=== PATIENT | male | born 1980 | race Caucasian/White ===

== ENCOUNTER 2024-01-03 08:48 | Emergency (ER) | payer SELFPAY ==
[2024-01-03 08:57] VITALS: BP 116/80; PULSE 93; RESP 18; TEMP 98; BMI 22.1
[2024-01-03] MEDS: SODIUM CHLORIDE 0.9% 500 ML INFUS.BAG IV ONE (09:50)
[2024-01-03 09:58] LABS: BASO % 1.2 % (0-2.0); EOS % 0.3 % (0-4.5); LYMPH % 9.4 % (8-40); MCH 25.1 pg (25.7-33.7); MCHC 31.7 g/dl (32.0-35.9); MEAN CELL VOLUME 79.2 fl (80-96); MONO % 10.4 % (3.8-10.2); NEUT % 78.7 % (42.8-82.8); PLATELET COUNT 436 10^3/uL (134-434); RBC 5.18 M/mm3 (4.00-5.60); RDW 12.7 % (11.9-15.9); WHITE BLOOD COUNT 13.5 K/mm3 (4.0-10.0)
[2024-01-03 10:02] LABS: INR 1.27 (0.83-1.09); PROTHROMBIN TIME (PATIENT) 14.5 SEC (9.7-13.0)
[2024-01-03 10:05] LABS: ACTIVATED PTT 30.6 SECONDS (25.2-36.5)
[2024-01-03 10:53] LABS: CHLORIDE 101 mmol/L (98-107); POTASSIUM 4.8 mmol/L (3.5-5.1); SODIUM 138 mmol/L (136-145)
[2024-01-03 10:55] LABS: BLOOD UREA NITROGEN 10.1 mg/dL (7-18); CALCIUM 9.2 mg/dL (8.5-10.1); MAGNESIUM 2.3 mg/dL (1.8-2.4); URINE APPEARANCE CLEAR; URINE BILIRUBIN NEGATIVE (NEGATIVE); URINE COLOR YELLOW; URINE GLUCOSE (UA) NEGATIVE (NEGATIVE); URINE KETONE 15 mg/dl (NEGATIVE); URINE PROTEIN 30 (NEGATIVE)
[2024-01-03 10:56] LABS: ANION GAP 8 mmol/L (4-13); CO2 29 mmol/L (21-32); GLUCOSE,RANDOM 125 mg/dL (74-106); URINE LEUK ESTERASE NEGATIVE (NEGATIVE); URINE NITRITE NEGATIVE (NEGATIVE); URINE UROBILINOGEN 0.1 mg/dL (0.2-1.0)
[2024-01-03 10:58] LABS: CREATININE 0.9 mg/dL (0.55-1.3); SGOT/AST 31 U/L (15-37); SGPT/ALT 51 U/L (13-61); URIC ACID 3.7 mg/dL (2.6-7.2)
[2024-01-03 11:00] LABS: TOT PROT 7.7 g/dl (6.4-8.2)
[2024-01-03 11:01] LABS: BILIRUBIN,TOTAL 1.2 mg/dL (0.2-1)
[2024-01-03 11:02] LABS: ALK PHOS 76 U/L (45-117)
[2024-01-03] MEDS ORDERED: ACETAMINOPHEN 500 MG TABLET (FP) ONE (11:27)
[2024-01-03] MEDS ORDERED: KETOROLAC TROMETHAMINE 30 MG/1 ML VIAL ONE (11:27)
[2024-01-03] MEDS: KETOROLAC TROMETHAMINE 30 MG/1 ML VIAL IVPUSH ONE (11:33)
[2024-01-03] MEDS: ACETAMINOPHEN 500 MG TABLET (FP) PO ONE (11:33)
== END 2024-01-03 13:54 | disposition home or self-care (01) ==
LOC: JERFT 08:48
PROC: 3E0333Z Introduction of Anti-inflammatory into Peripheral Vein, Percutaneous Approach (ICD-10-PCS; principal; 2024-01-03)
DX: M25.471 Effusion, right ankle (principal); M25.472 Effusion, left ankle; M25.474 Effusion, right foot; M25.475 Effusion, left foot; M79.671 Pain in right foot; M79.672 Pain in left foot; M25.571 Pain in right ankle and joints of right foot; M25.572 Pain in left ankle and joints of left foot
CPT/HCPCS: 36415; 73610-TC-LT-FY; 73610-TC-RT-FY; 73630-TC-LT; 73630-TC-RT-FY; 80053; 81003; 81015; 82550; 82553; 83735; 84100; 84550; 85025; 85610; 85730; 87086; 93005; 93010; 99285-25